=== PATIENT | female | born 1995 ===

== ENCOUNTER 2017-02-13 06:36 | Day surgery (SDC) | payer OTHER ==
[2017-02-04 10:51] VITALS: BMI 23.0
[2017-02-13 07:31] VITALS: O2SAT 100
[2017-02-13] MEDS ORDERED: Bupivacaine HCl 0.5% PF (10 ml) Inj ONE (07:36)
[2017-02-13] MEDS ORDERED: cefOXitin IV 2 gm in Dextrose 2 GM/50 ML BAG IVPB ONE (07:36)
[2017-02-13] MEDS ORDERED: Midazolam 2 MG/2 ML VIAL ONE (09:16)
[2017-02-13] MEDS ORDERED: Propofol 10 mg/ml Inj (20 ML) ONE (09:16)
[2017-02-13] MEDS ORDERED: Neostigmine Methylsulfate 3mg/3ml Syringe IV ONE (10:45)
[2017-02-13] MEDS ORDERED: Lactated Ringer's 1,000 ML IV ONE (11:00)
--- NOTE | 2017-02-13 11:02 | PCM.SURG1 ---
Surgeon's Initial Post Op Note - Surgeon's Notes Surgeon: Dr Contreras Nuclear Physician: Dr Fowler Type of Anesthesia: General Endo Anesthesia Administered By: LORRI Graham supervised by Dr Watson Martínez Pre-Operative Diagnosis: 21yo Female with a Persistent Ovarian Cyst. Pelvic Pain Operative Findings: Normal sized anteverted uterus with normal appearing bilateral fallopian tubes. The left ovary was normal sized and appeared normal. There was a Right 6.5X5.0X 4.5cm cystic mass involved with the right ovary which on laparoscopic mobilization ruptured with output of about 50mls of chocolaty mucinous fluid. There were multipe bluish dark deposits on the anterior surface of the uterus and on the inferior aspects of the pelvic chávez, these were endometriotic lesions which were fulgurated with the bovie device. IV Fluid intake: 1000mls. Urine output- 50mls. EBL- 30mls Post-Operative Diagnosis: Pelvic pain due to pelvic endometriosis. Large Ovarian endometrioma Operation Performed: Laparoscopy with Right ovarian cystectomy. Fulguration of endometriotic lesions Specimen/Specimens Removed: ovarian Cyst wall Estimated Blood Loss: EBL {In ML}: 30 Blood Products Given: N/A Post-Op Condition: Good Date of Surgery/Procedure: 02/13/17 Time of Surgery/Procedure: 10:45
[2017-02-13] MEDS ORDERED: HYDROmorphone 0.5 mg/0.5 ml ISec IVP PRN (11:05)
[2017-02-13] MEDS ORDERED: Lactated Ringer's 1,000 ML IV SCH (11:15)
--- NOTE | 2017-02-13 12:21 | OP ---
PROCEDURE DATE: 02/13/2017 PREOPERATIVE DIAGNOSES: A 21-year-old female with a persistent for ovarian cyst and chronic pelvic pain. POSTOPERATIVE DIAGNOSES: Right ovarian endometrioma and pelvic endometriosis. PROCEDURE DONE: Laparoscopy with right ovarian cystectomy and fulguration of endometriotic deposits. SURGEON: Dr. Contreras UTILIZATION SPECIALIST: Dr. Fowler. Assistance to this procedure was needed for exposure of tissues and also help in the conduct of the surgery. The esol teacher assistant remained with the surgery throughout its entire length. ANESTHESIA: General endotracheal. ANESTHESIA ADMINISTERED BY: LORRI Browning supervised by Dr. Wtason Martínez. FINDINGS: Normal sized anteverted uterus with normal appearing bilateral tubes. The left ovary was normal size and appeared normal. There was a 6.5 x 5.0 x 4.5 cystic mass incorporating the right ovary, which on laparoscopic mobilization ruptured with output of about 50 mL of chocolate mucinous fluid. There were some bluish-green endometriotic lesions identified on the anterior surface of the cervix and on the bladder peritoneum, about 4 or 5 of them. These were identified and fulgurated using a Bovie device. INTRAVENOUS FLUID INTAKE: About 1000 mL. ESTIMATED BLOOD LOSS: About 30 mL. URINE OUTPUT: About 100 mL. COMPLICATIONS: There were none. SPECIMENS TAKEN: The ovarian cyst wall for histopathology. DESCRIPTION OF PROCEDURE: After obtaining informed consent, the patient was sent to the OR with IV running and Car catheter in place. The patient was placed in a supine position on the OR table and after adequate general anesthesia, was put in a dorsal lithotomy position. The patient was then prepped and draped in a sterile fashion. The urinary catheter was drained with an indwelling catheter with output of about 100 mL. The posterior wall of the vagina was depressed using a weighted speculum. The anterior wall was elevated with an L-shaped retractor to expose the cervix, which was held with a single tooth tenaculum. The cervical opening was dilated with Hegar's dilators to about 8 mm dilatation. The uterine manipulator was inserted after sounding the uterus to a depth of about 7 cm. A HUMI uterine manipulator was secured in place with an air balloon attached to it. The instruments were removed after insertion of the HUMI uterine manipulator and attention was turned to the anterior abdominal wall. A 5 mm incision was made into the midpoint of the umbilicus and a Veress needle was inserted. After assuring intra-abdominal placement, this was connected to carbon dioxide gas. The abdomen was then filled with carbon dioxide gas to a pressure of about 14 mmHg. A 5 mm trocar and sleeve was introduced into the umbilical incision and after assuring intra- abdominal placement, a laparoscope was introduced and the above findings noted. Two additional laparoscopic ports, a 5 mm port in the right lower quadrant and a 10 mm port in the left lower quadrant, were placed. The large ovarian cyst was identified and while it was being manipulated at laparoscopy, it ruptured to produce about 50 mL of chocolate fluid. Cystectomy was then performed with a 5 mm LigaSure device and after suctioning the chocolate fluid from the pelvis. The cyst wall was then taken from the abdomen through the 10 cm port using an EndoCatch bag. Hemostasis was attained with the use of laparoscopic bovie device. Once hemostasis was assured after the procedure, the pelvis was irrigated with warm saline. The area of excision of the cyst wall was treated with Surgicel to ensure further hemostasis. Once the procedure was completed, other intra-abdominal organs were inspected and there were no abnormalities noted. The air was let out of the abdominal cavity after taking off all the instruments and the incisions on the abdominal ports were closed using #4-0 Biosyn. The fascia within the 10 mm incision on the left side was closed with #2-0 Vicryl. All counts of instruments used, laparotomy gauze and needles used were correct x 3 and the patient was sent to the recovery room awake and in stable condition. Dashawn Contreras MD cc: [id number] TT: 02/13/2017 12:20:41 en MTDD
[2017-02-13 14:11] VITALS: RESP 19; TEMP 98.3
[2017-02-13 15:31] VITALS: BP 106/59; PULSE 60
== END 2017-02-13 15:30 | disposition home or self-care (01) ==
LOC: C.SDS 06:36
PROVIDERS: ATTEND Obstetrics & Gynecology
DX: N80.1 Endometriosis of ovary (principal); N80.3 Endometriosis of pelvic peritoneum
CPT/HCPCS: 58662; 88305; J0694; J1100; J1170; J1885; J2001; J2250; J2405; J2704; J2710; J3010; J7120